=== PATIENT | male | born 1985 | race Two or more races ===

== ENCOUNTER 2024-01-06 09:48 | Emergency (ER) | payer OTHER ==
[~2024-01-06] VITALS: Ht 175.3 cm; Wt 99.3 kg
[2024-01-06] MEDS ORDERED: CRESTOR40 MG PO (10:25)
[2024-01-06] MEDS ORDERED: AVAPRO75 MG PO (10:26)
[2024-01-06] MEDS ORDERED: AVAPRO150 MG PO (10:26)
[2024-01-06] MEDS ORDERED: KETOROLAC TROMETHAMINE 60 MG VIAL IM STA (11:11)
== END 2024-01-06 12:20 | disposition home or self-care (01) ==
LOC: ER 09:48
DX: G44.209 Tension-type headache, unspecified, not intractable (principal); M51.36 Other intervertebral disc degeneration, lumbar region; I10 Essential (primary) hypertension; Z91.013 Allergy to seafood